=== PATIENT | female | born 1980 | race Two or more races ===

== ENCOUNTER 2019-11-04 09:55 | Emergency (ER) | payer MEDICAID ==
[~2019-11-04] VITALS: Ht 154.9 cm; Wt 84.1 kg
--- NOTE | 2019-11-04 10:12 | NUR ---
PATIENT STATES THAT SHE HAS HAD SUDDEN SOB. DENIES PAST MEDICAL PROBLEMS. COUGH WITH DEEP INSPIRATION. O2 SAT 94% ON ROOM AIR.
[2019-11-04] MEDS ORDERED: acetaminophen 325mg tablet PO STA (10:34)
[2019-11-04] MEDS ORDERED: CefTRIAXone 2gm/D5W 50ml 50 ML IV ONE (10:35)
[2019-11-04] MEDS ORDERED: azithromycin/NS 500mg/250ml 250 ML IV ONE (10:35)
[2019-11-04] MEDS ORDERED: normal saline 1000ML IV soln IV ONE (10:35)
[2019-11-04 11:16] LABS: BASOPHILS % (AUTO) 0.2 % (0-1); EOSINOPHILS % (AUTO) 0 % (0-6); HEMATOCRIT 40.6 % (35.0-45.0); HEMOGLOBIN 13.7 g/dl (12.0-16.0); LYMPHOCYTES # (AUTO) 1.1 X10'3 (1.1-4.8); LYMPHOCYTES % (AUTO) 25.4 % (21-51); MEAN CORPUSCULAR HEMOGLOBIN 32.2 PG (27.0-31.0); MEAN CORPUSCULAR HGB CONC 33.7 g/dL (33.0-36.5); MEAN CORPUSCULAR VOLUME 95.8 FL (78-98); MONOCYTES # (AUTO) 0.3 X10'3 (0-0.9); MONOCYTES % (AUTO) 6.3 % (2-12); NEUTROPHILS % (AUTO) 68.1 % (42-75); PLATELET COUNT 171 X10'3 (140-440); RED BLOOD COUNT 4.24 X10'6 (4.20-5.60); RED CELL DISTRIBUTION WIDTH 13.2 % (11.5-14.5); WHITE BLOOD COUNT 4.5 X10'3 (4.5-11.0)
[2019-11-04 11:27] LABS: D-DIMER 0.32 MG/L FEU (0-0.50)
[2019-11-04 11:34] LABS: C-REACTIVE PROTEIN 2.67 MG/DL (0.0-0.5)
[2019-11-04 12:07] LABS: ALANINE AMINOTRANSFERASE 103 U/L (12-78); ALBUMIN 3.6 G/DL (3.4-5.0); ALBUMIN/GLOBULIN RATIO 0.9 (1.1-1.5); ALKALINE PHOSPHATASE 106 IU/L (46-116); ANION GAP 9 (8-16); ASPARTATE AMINO TRANSFERASE 70 U/L (10-37); BILIRUBIN,TOTAL 0.2 MG/DL (0.1-1.0); BLOOD UREA NITROGEN 9 MG/DL (7-18); BUN/CREATININE RATIO 12.3 (6.6-38.0); CALCIUM 8.1 MG/DL (8.5-10.1); CHLORIDE 101 MMOL/L (99-107); CREATININE 0.73 MG/DL (0.40-0.90); GLUCOSE 114 MG/DL (70-104); POTASSIUM 3.6 MMOL/L (3.5-5.1); SODIUM 136 MMOL/L (135-145); TOTAL CARBON DIOXIDE 25.8 MMOL/L (24-32); TOTAL PROTEIN 7.8 G/DL (6.4-8.2); eGFR 90 ML/MIN
[2019-11-04] MEDS ORDERED: ALBU6.7H9 INH (13:15)
[2019-11-04] MEDS ORDERED: BENZ-38 PO (13:15)
[2019-11-04] MEDS ORDERED: PRED20TA PO (13:15)
[2019-11-04] MEDS ORDERED: AZIT250T2 PO (13:15)
[2019-11-04] MEDS ORDERED: dexamethasone sod phosphate 10mg/ml inj IV STA (13:15)
--- NOTE | 2019-11-04 13:20 | NUR ---
PT COVID Swab +, ERICK Golden, sash finisher and Primary RN notified, plan of care to discharge pt with instructions for symptoms management, return to ED if pt condition worsens.
[2019-11-04 13:36] VITALS: BP 101/58
[2019-11-04] MEDS ORDERED: DOXY100C76 PO (13:37)
== END 2019-11-04 13:52 | disposition home or self-care (01) ==
LOC: ER 09:56
DX: J18.9 Pneumonia, unspecified organism (principal); Z20.828 Contact with and (suspected) exposure to other viral communicable diseases; Z79.2 Long term (current) use of antibiotics; Z79.899 Other long term (current) drug therapy
CPT/HCPCS: 36415; 71045; 80053; 83605; 83880; 84145; 84484; 85025; 85379; 86140; 87040; 87635; 93005; 96365; 96367; 96375; 99285; C9803; J0456; J0696; J1100; J7030